=== PATIENT | male | born 1980 | race Caucasian/White ===

== ENCOUNTER 2019-10-24 14:50 | Emergency (ER) | payer OTHER, SELFPAY ==
[2019-02-12 17:00] VITALS: BMI 21.7
[2019-10-24 14:51] VITALS: BP 162/84; PULSE 84; RESP 16; TEMP 36.3; O2SAT 99; BMI 21.7
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
== END 2019-10-24 16:46 | disposition home or self-care (01) ==
PROVIDERS: Emergency Provider Emergency Medicine; PCP Family Medicine
DX: S61.411A Laceration without foreign body of right hand, initial encounter (principal); F17.200 Nicotine dependence, unspecified, uncomplicated; W29.0XXA Contact with powered kitchen appliance, initial encounter; Y93.89 Activity, other specified; Y92.512 Supermarket, store or market as the place of occurrence of the external cause; Y99.8 Other external cause status
CPT/HCPCS: 12001; 99283

== ENCOUNTER 2019-12-19 21:18 | Emergency (ER) | payer OTHER, SELFPAY ==
[2019-12-19 21:19] VITALS: BP 142/99; PULSE 105; RESP 18; TEMP 37.1; O2SAT 100; BMI 21.7
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
[2019-12-19] MEDS: Acetaminophen 500 MG Tablet 1000 MG PO (22:20)
[2019-12-19 22:21] VITALS: RESP 18
== END 2019-12-19 22:45 | disposition home or self-care (01) ==
LOC: ED 22:24
PROVIDERS: Emergency Provider Emergency Medicine; PCP Family Medicine
DX: S39.012A Strain of muscle, fascia and tendon of lower back, initial encounter (principal); M25.532 Pain in left wrist; Z72.0 Tobacco use; V43.52XA Car driver injured in collision with other type car in traffic accident, initial encounter; Y93.I9 Activity, other involving external motion; Y92.410 Unspecified street and highway as the place of occurrence of the external cause; Y99.8 Other external cause status
CPT/HCPCS: 72100; 73110; 99283

== ENCOUNTER 2020-04-05 17:30 | Outpatient (RCR) | payer OTHER, SELFPAY ==
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
--- NOTE | 2020-03-08 16:58 | HP.PTREVAL ---
ETIENNE VILLAGRAN, It has been my pleasure to treat PARAMJIT CLAYTON over the last 9 visits for LBP. Please see the progress note below for an update on the physical therapy plan of care! Subjective: Alot better. Once I get going I am great. Sitting and getting up is the bigger problem. Sitting is not bad. Activities are normal outside og heavy lifting and mowing. otherwise going well. Sleep is good adn feel sgood in the am. No f/u with doctor scheduled. Doing some ROM ex in evening but not consistently. Bought bowflex machine and will start using that. Objective/Function: ext much improved to mod deficits and without much pain, still very tight overall. SB adn flexiona re good. Posture is flexed adn posterior pelvic tilt in chair until verbally cued adn painful to trasnfer off chair and table. Better stance from appropriate posture. Waslk well adn steps normal. Plan Plan: 2x/week for 3-4 weeks for. 1. Ext ROM and ext mobs. 2. Core strength education pt can do with bowflex at home and HO. 3. stretch LB focussing on child pose, down dog, up dog and rotation flow. Goals Goal 1:: Full aROM spine without pain or hesitation Goal Time Frame: 4-6 Weeks Goal Progress: Progressing Goal 2:: Pt report pain 90% better adn 1/10 at worst intermittent Goal Time Frame: 4-6 Weeks Goal Progress: Progressing Goal 3:: Pt I in appropriate HEP to minimize future problems. Goal Time Frame: 4-6 Weeks Goal Progress: not compliant, time Goal 4:: <5% disability on oswestry Goal Time Frame: 4-6 Weeks Goal Progress: Goal Met Goal 5:: Exit chair without evidence of pain. Goal Time Frame: 2-4 Weeks Anticipated Interventions Patient/Client Instruction: Educate patient on: Condition, Plan of Care For the Purpose of:: To decrease pain, To increase tolerance to activity/condition/position, To improve ability of physical actions for home/community/work/leisure, To improve gait and locomotor functions Therapeutic Exercise to Include: Strength training, Postural training, Flexibilty training, Gait and locomotor training, Passive ROM, Active ROM, Dynamic Lumbar Stabilization, Scot Exercises For the Purpose of:: To decrease pain, To increase ROM, To improve muscle performance and motor function, To increase tolerance to activity/condition/position, To improve ability of physical actions for home/community/work/leisure Manual Therapy Techniques to Include: Mobilization, Soft tissue mobilization For the Purpose of:: To decrease pain, To increase ROM TENS: Yes Thermo therapy (hot pack): Yes For the Purpose of:: To decrease pain Please do not hesitate to contact me at [phone] by phone or if you have questions or concerns regarding this new plan of care! Sincerely, Josh Hadley, DPT, OCS, CSCS
--- NOTE | 2020-04-05 17:56 | HP.PTDCSUM ---
It has been my pleasure to treat PARAMJIT CLAYTON referred by ETIENNE VILLAGRAN, with the diagnosis of LBP for a total of 14 visit(s). Discharge Date: 04/05/20 Please see the following information for a summary of their discharge status. Subjective: Going the right way. Feels like stiffness in uscles is improving. Pain is not present. Sometimes if sits it hurts in LB but transient. Sleep is good. Did exercises at home on Bowflex and stretching. Activities at home and work are normal. Avoids heavy lifting. LBP Pain Intensity (Out of 10): 3 % Improvement: 80 Objective/Function: ROM L/S is full although slow and hesitant and without pain, has some stiffness. Walks well. Still sits with rounded LB 50% of time and slow to exit chair although not painful. OVERALL DOING WELL AND CAN CONTINUE VIA HEP. WILL CONTACT DOCTOR REGARDING F/U IF NEEDED. Goal 1:: Full aROM spine without pain or hesitation Goal Progress: Goal Met Goal 2:: Pt report pain 90% better adn 1/10 at worst intermittent Goal Progress: Progressing Goal 3:: Pt I in appropriate HEP to minimize future problems. Goal Progress: Goal Met Goal 4:: <5% disability on oswestry Goal Progress: Progressing Goal 5:: Exit chair without evidence of pain. Goal Progress: Progressing Plan: D/C TO HEP If there are questions or concerns regarding this patient's physical therapy, please feel free to call me at [phone]. Thank you for the referral of this patient. Sincerely, Josh Hadley, DPT, OCS, CSCS
== END 2020-04-05 19:00 | disposition home or self-care (01) ==
LOC: PT 17:30
PROVIDERS: PCP Family Medicine
DX: M54.5 Low back pain (principal)
CPT/HCPCS: 97014; 97110; 97140; 97161; 97164; G0283

== ENCOUNTER → 2025-06-20 | Outpatient (CLI) | payer OTHER, SELFPAY | END | disposition home or self-care (01) | LOC: LABSPEC 06-21 08:42 | PROVIDERS: PCP Family Medicine; Visit Provider Nurse Practitioner Family | DX: R39.89 Other symptoms and signs involving the genitourinary system (principal) | CPT/HCPCS: 87086 ==

== ENCOUNTER → 2025-06-25 | Outpatient (CLI) | payer OTHER, SELFPAY | END | disposition home or self-care (01) | LOC: LABSPEC 06-28 07:54 | PROVIDERS: PCP Family Medicine; Visit Provider Physician Assistant Surgical | DX: R39.89 Other symptoms and signs involving the genitourinary system (principal) | CPT/HCPCS: 87491; 87591; 87661 ==